=== PATIENT | male | born 1975 | race Caucasian/White ===

== ENCOUNTER 2016-12-30 14:47 | Emergency (ER) | payer BC ==
[2016-12-30 15:23] VITALS: BP 135/76; PULSE 65; RESP 20; TEMP 98
[2016-12-30] MEDS ORDERED: HYDROcodone/APAP 7.5-325MG 1 EACH TAB PO ONE (16:04)
[2016-12-30] MEDS ORDERED: KETOROLAC 60 MG/2 ML VIAL IM STA (16:04)
--- NOTE | 2016-12-30 16:52 | ED ---
Upper Extremity HPI - General Chief Complaint: Extremity Injury, Upper Stated Complaint: Finger Injury Time Seen by Provider: 12/30/16 15:55 Source: patient, RN notes reviewed Mode of arrival: ambulatory Limitations: no limitations - History of Present Illness Initial Comments: 41-year-old male presents to the ER after sustaining a crush injury to his left thumb. He was seen at [facility] yesterday and they diagnosed him with an open fracture of the left thumb. He states that they gave him oral Toradol and clindamycin and told and follow-up with orthopedics this week. He states that the Toradol is not controlling his pain and he is not able to sleep last night. Eyes any constitutional symptoms including nausea, vomiting, abdominal pain, headache, chest pain, shortness of breath, numbness or tingling of the extremities. He also states that he was given his tetanus shot yesterday at [facility]: home - Related Data Home Medications Medication Instructions Recorded Confirmed Lisinopril [Zestril] 10 mg PO DAILY 12/30/16 12/30/16 Omeprazole [PriLOSEC] 20 mg PO DAILY 12/30/16 12/30/16 Previous Rx's Medication Instructions Recorded HYDROcodone/APAP 5-325MG [[place] 5] 1 - 2 each PO Q4-6H PRN #30 tab 12/30/16 Allergies Allergy/AdvReac Type Severity Reaction Status Date / Time Penicillins Allergy Unknown Verified 12/30/16 15:23 Review of Systems ROS Statement: Those systems with pertinent positive or pertinent negative responses have been documented in the HPI. ROS Other: All systems not noted in ROS Statement are negative. Past Medical History Past Medical History: GERD/Reflux, Hypertension History of Any Multi-Drug Resistant Organisms: None Reported Additional Past Surgical History / Comment(s): tonsilectomy Past Psychological History: No Psychological Hx Reported Smoking Status: Never smoker Past Alcohol Use History: Occasional Past Drug Use History: None Reported General Exam Limitations: no limitations General appearance: alert, in distress (Secondary to pain) Head exam: Present: atraumatic, normocephalic Eye exam: Present: normal appearance, PERRL, EOMI Pupils: Present: normal accommodation Respiratory exam: Present: normal lung sounds bilaterally Cardiovascular Exam: Present: regular rate, normal rhythm Extremities exam: Present: normal capillary refill, other (Left thumb: Diffuse ecchymosis with laceration under nail with subungual hematoma. Mild to moderate edema. Neurovascular intact, range of motion intact) Neurological exam: Present: alert, oriented X3, CN II-XII intact Psychiatric exam: Present: normal affect, normal mood Course Vital Signs 12/30/16 15:18 Temperature 98.0 F Pulse Rate 65 Respiratory 20 Rate Blood Pressure 135/76 O2 Sat by Pulse 98 Oximetry Procedures - Incision & Drainage Consent Obtained: verbal consent Time Out Performed?: Yes Indication: Subungual hematoma Site: other (Left thumbnail) I&D Cleaning Method: Alcohol Wipe Sterile Field Used?: No Needle Aspiration Performed?: No (Puncture completed with cauterization) Irrigation Performed?: No I&D Drainage Obtained: Blood Culture Obtained?: No Patient Tolerated Procedure: well Medical Decision Making - Medical Decision Making 41-year-old male presents to the ER [facility] with an open fracture of the left phalanx of the thumb. The image was reviewed as they brought a CD with them. There was a subungual hematoma and this was drained to help relieve pressure and pain. The patient was also given a Toradol injection [place] in the ER to help with pain and given a prescription for [place] to have at home to help control the pain as well. Patient is instructed to follow-up with orthopedics this week. He was given a work note for the week if he is not allowed to have any bandage her glove on while working. The patient is to elevate the area and ice intermittently. To return to the ER with any worsening symptoms or concerns. All questions were answered and patient agreeable with treatment plan. - Radiology Data Radiology results: image reviewed (Patient brought disc and this did show a comminuted fracture of the left distal phalanx of the thumb.) Disposition Clinical Impression: Subungual hematoma of left thumb, Open fracture of phalanx of left thumb Disposition: HOME SELF-CARE Condition: Good Instructions: Subungual Hematoma (ED) Additional Instructions: To follow-up with orthopedics as soon as possible. To return to the ER if any worsening symptoms or concerns. Prescriptions: HYDROcodone/APAP 5-325MG [[place] 5] 1 - 2 each PO Q4-6H PRN #30 tab PRN Reason: Pain Referrals: Mari Phillips MD [Primary Care Provider] - 1-2 days Tabitha Chandra, PAC [PHYSICIAN TRANSFER CONTROLLER] - 1-2 days Time of Disposition: 16:52
== END 2016-12-30 17:03 | disposition home or self-care (01) ==
LOC: EC 14:47
DX: S62.522B Displaced fracture of distal phalanx of left thumb, initial encounter for open fracture (principal); S60.012A Contusion of left thumb without damage to nail, initial encounter; K21.9 Gastro-esophageal reflux disease without esophagitis; I10 Essential (primary) hypertension; Z79.899 Other long term (current) drug therapy; Z88.0 Allergy status to penicillin; W22.8XXA Striking against or struck by other objects, initial encounter; Y92.009 Unspecified place in unspecified non-institutional (private) residence as the place of occurrence of the external cause
CPT/HCPCS: 99283; 11740; 96372; J1885

== ENCOUNTER 2023-03-04 08:24 | Emergency (ER) | payer BC ==
[2023-03-04 08:30] VITALS: RESP 18; TEMP 98.6
[2023-03-04] MEDS ORDERED: MAG HYDROX/AL HYDROX/SIMETH 30 ML, HYOSCYAMINE ELIXIR 10 ML, LIDOCAINE 2% GLYDO JELLY 1... PO STA ×3 (08:45)
--- NOTE | 2023-03-04 08:56 | ED ---
General Adult HPI - General Chief complaint: ENT Stated complaint: throat irritation Time Seen by Provider: 03/04/23 08:34 Source: patient, RN notes reviewed, old records reviewed Mode of arrival: ambulatory Limitations: no limitations - History of Present Illness Initial comments: Patient is a 47-year-old male with past medical history remarkable for acid reflux, irritable bowel syndrome, hypertension presents emergency Department complaining of throat irritation. Patient states that one week ago he was eating chicken wings when he thinks he may have swallowed a piece of bone or cartilage. At some irritation then but it seemed to resolve. However over the last 1-2 days he has noticed somewhat more discomfort when swallowing. Is having no issues swallowing solids or liquids but became concerned and wanted to be evaluated. Denies any hematemesis. Denies any nausea or vomiting. Denies diarrhea. Has any other chest pain. Denies shortness of breath. Is able to tolerate both liquids and solids. Has no other acute complaints at this time. - Related Data Home Medications Medication Instructions Recorded Confirmed Omeprazole [PriLOSEC] 20 mg PO DAILY 12/30/16 12/30/16 lisinopriL [Zestril] 10 mg PO DAILY 12/30/16 12/30/16 Previous Rx's Medication Instructions Recorded HYDROcodone/APAP 5-325MG [[place] 5] 1 - 2 each PO Q4-6H PRN #30 tab 12/30/16 Ondansetron Odt [Zofran Odt] 4 mg PO Q8HR PRN 2 Days #6 tab 03/04/23 Allergies Allergy/AdvReac Type Severity Reaction Status Date / Time Penicillins Allergy Unknown Verified 12/30/16 15:23 Review of Systems ROS Statement: Those systems with pertinent positive or pertinent negative responses have been documented in the HPI. Review of Systems: CONST: Denies fever EYES: Denies blurry vision ENT: Denies nasal congestion C/V: Denies Chest pain RESP: Denies shortness of breath GI: Denies abdominal pain : Denies dysuria SKIN: Denies rash. MSK: Denies joint pain. NEURO: Denies headache ROS Other: All systems not noted in ROS Statement are negative. Past Medical History Past Medical History: GERD/Reflux, Hypertension History of Any Multi-Drug Resistant Organisms: None Reported Additional Past Surgical History / Comment(s): tonsilectomy Past Psychological History: No Psychological Hx Reported Smoking Status: Never smoker Past Alcohol Use History: Occasional Past Drug Use History: None Reported General Exam - General Exam Comments Initial Comments: General: Appears in no acute distress. HEAD: Normal with no signs of head trauma. EYES: PERRLA, EOMI, conjunctiva normal, no discharge. ENT: Hearing grossly intact, normal oropharynx. No stridor auscultated. RESPIRATORY: Clear breath sounds bilaterally. No wheezes, rales, or rhonchi. C/V: Regular rate and rhythm. S1 and S2 auscultated, peripheral pulses 2+ and intact throughout ABD: Abd is soft, nontender, nondistended EXT: Normal range of motion, no obvious deformity SKIN: No rashes or lesions observed on exposed skin. NEURO: Alert and oriented 4. Limitations: no limitations Course Vital Signs 03/04/23 03/04/23 08:28 10:18 Temperature 98.6 F Pulse Rate 58 L 57 L Respiratory 18 18 Rate Blood Pressure 156/84 135/90 O2 Sat by Pulse 100 96 Oximetry Medical Decision Making - Medical Decision Making Was pt. sent in by a medical professional or institution (, PA, SALES OFFICE MANAGER, urgent care, hospital, or care home...) When possible be specific @ -No Did you speak to anyone other than the patient for history (EMS, parent, family, police, friend...)? What history was obtained from this source @ -No Did you review nursing and triage notes (agree or disagree)? Why? @ -I reviewed and agree with nursing and triage notes Were old charts reviewed (outside hosp., previous admission, EMS record, old EKG, old radiological studies, urgent care reports/EKG's, care home records)? Report findings @ -No old charts were reviewed Differential Diagnosis (chest pain, altered mental status, abdominal pain women, abdominal pain men, vaginal bleeding, weakness, fever, dyspnea, syncope, headache, dizziness, GI bleed, back pain, seizure, CVA, palpatations, mental health, musculoskeletal)? @ -Esophageal foreign body, esophageal rupture, esophageal tear, acid reflux. This list is not all-inclusive. EKG interpreted by me (3pts min.). @ -None done X-rays interpreted by me (1pt min.). @ -Patient's imaging negative for any evidence of esophageal rupture or esophageal foreign body. Chest x-ray within acceptable limits. CT interpreted by me (1pt min.). @ -None done U/S interpreted by me (1pt. min.). @ -None done What testing was considered but not performed or refused? (CT, X-rays, U/S, labs)? Why? @ -None What meds were considered but not given or refused? Why? @ -None Did you discuss the management of the patient with other professionals (professionals i.e. , PA, SALES OFFICE MANAGER, lab, RT, psych nurse, marriage and family social worker, inner tube tuber machine operator, teacher, agricultural technical officer, special education case manager)? Give summary @ -No Was smoking cessation discussed for >3mins.? @ -No Was critical care preformed (if so, how long)? @ -No Were there social determinants of health that impacted care today? How? (Homelessness, low income, unemployed, alcoholism, drug addiction, transportation, low edu. Level, literacy, decrease access to med. care, penitentiary, rehab)? @ -No Was there de-escalation of care discussed even if they declined (Discuss DNR or withdrawal of care, Hospice)? DNR status @ -No What co-morbidities impacted this encounter? (DM, HTN, Smoking, COPD, CAD, Cancer, CVA, ARF, Chemo, Hep., AIDS, mental health diagnosis, sleep apnea, morbid obesity)? @ -None Was patient admitted / discharged? Hospital course, mention meds given and route, prescriptions, significant lab abnormalities, going to OR and other pertinent info. @ -Based on the patient's presentation and physical exam, I'm concerned for possible esophageal foreign body, however original feeling was one week ago and has been tolerating oral intake since. We did discuss he may have some esophageal irritation from possible laceration or abrasion from the food he ate last week, combined with his acid reflex. I did discuss with him we will provide him with a GI cocktail as well as obtain chest x-ray and soft tissue neck x-ray to evaluate for any obvious signs of perforation or foreign body. He believes it might of been a problem. He was in agreement with this plan. Vital signs within acceptable limits. He is resting comfortably in no acute distress. Imaging is unremarkable. Patient's still tolerating oral intake. I discussed results with him. I believe it is safer to be discharged home. He was in agreement this plan. Strict return precautions discussed. Discussed he may have an abrasion in his esophagus caused by what ever food he swallowed. No concern for large chicken bone at this time. He is tolerating oral liquids and solid diet. Recommended antacids at home as well as Mylanta. He was in agreement this plan. I instructed the patient to follow up with their PCP in the next 1-3 days. I provided contact information for follow up with GI. I explained that the patient should return to the emergency department if they experience any worsening symptoms. Strict return precautions were discussed with the patient. The patient expressed understanding of these instructions. I answered all questions that the patient had. The patient was discharged home in good condition with their prescriptions and follow up information. Undiagnosed new problem with uncertain prognosis? @ -No Drug Therapy requiring intensive monitoring for toxicity (Heparin, Nitro, Insulin, Cardizem)? @ -No Were any procedures done? @ -No Diagnosis/symptom? @ -Dysphasia, suspected esophageal abrasion Acute, or Chronic, or Acute on Chronic? @ -Acute Uncomplicated (without systemic symptoms) or Complicated (systemic symptoms)? @ -uncomplicated Side effects of treatment? @ -none Exacerbation, Progression, or Severe Exacerbation] @ -no Poses a threat to life or bodily function? @ -no Disposition Clinical Impression: Esophageal abrasion Disposition: HOME SELF-CARE Condition: Good Instructions (If sedation given, give patient instructions): GERD (Gastroesophageal Reflux Disease) (ED), Dysphagia (ED) Prescriptions: Ondansetron Odt [Zofran Odt] 4 mg PO Q8HR PRN 2 Days #6 tab PRN Reason: Nausea Is patient prescribed a controlled substance at d/c from ED?: No Referrals: Cande Ventura MD [Primary Care Provider] - 1-2 days Time of Disposition: 10:01
--- NOTE | 2023-03-04 09:43 | XR ---
EXAMINATION TYPE: XR chest 2V DATE OF EXAM: 03/04/2023 COMPARISON: NONE HISTORY: Chest pain TECHNIQUE: Frontal and lateral views of the chest are obtained. FINDINGS: There is no focal air space opacity. No evidence for pneumothorax. No pleural effusion. The cardiac silhouette size is within normal limits. The osseous structures are grossly intact. IMPRESSION: 1. No acute cardiopulmonary process. No radiopaque foreign body identified.
--- NOTE | 2023-03-04 09:43 | XR ---
EXAMINATION TYPE: XR soft tissue neck DATE OF EXAM: 03/04/2023 COMPARISON: NONE HISTORY: eval for esoph foreign body/mediastinal air TECHNIQUE: 2 views of the soft tissues of the neck are submitted. FINDINGS: The airway is patent. Normal appearing epiglottis. Retropharyngeal soft tissues are withi n normal limits. No evidence for radiopaque foreign body. IMPRESSION: Negative study
[2023-03-04 10:19] VITALS: BP 135/90; PULSE 57
== END 2023-03-04 10:19 | disposition home or self-care (01) ==
LOC: EC 08:24
DX: S27.818A Other injury of esophagus (thoracic part), initial encounter (principal); K21.9 Gastro-esophageal reflux disease without esophagitis; I10 Essential (primary) hypertension; Z88.0 Allergy status to penicillin; Z79.899 Other long term (current) drug therapy; W45.8XXA Other foreign body or object entering through skin, initial encounter
CPT/HCPCS: 70360; 71046; 99283

== ENCOUNTER 2024-11-19 19:54 | Emergency (ER) | payer BC ==
[2024-11-19 20:00] VITALS: TEMP 98.2
--- NOTE | 2024-11-19 20:14 | ED ---
Extremity Problem HPI - General Chief complaint: Extremity Problem,Nontraumatic Stated complaint: L Leg Edema Time Seen by Provider: 11/19/24 20:01 Source: patient Mode of arrival: ambulatory Limitations: no limitations - History of Present Illness Initial comments: 49-year-old male presenting with chief complaint of left leg pain. Patient reports that he regularly has a reddened patch of skin on his left knee that is quite dry and itchy. 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 He normally applies betamethasone and the itching subsides. Today the patient noticed that he had some red streaking going from the knee up his thigh. This is tender, worse with pressure or bearing weight. No fever. No cough congestion sore throat chest pain difficulty breathing nausea or vomiting. No history of DVT. No lower extremity swelling. - Related Data Home Medications Medication Instructions Recorded Confirmed Omeprazole [PriLOSEC] 20 mg PO DAILY 12/30/16 12/30/16 lisinopriL [Zestril] 10 mg PO DAILY 12/30/16 12/30/16 Previous Rx's Medication Instructions Recorded HYDROcodone/APAP 5-325MG [[place] 5] 1 - 2 each PO Q4-6H PRN #30 tab 12/30/16 Ondansetron Odt [Zofran Odt] 4 mg PO Q8HR PRN 2 Days #6 tab 03/04/23 Cephalexin [Keflex] 500 mg PO Q6HR 7 Days #28 cap 11/19/24 Sulfamethox-Tmp 800-160Mg [Bactrim 1 tab PO Q12HR 7 Days #14 tab 11/19/24 DS 800-160 mg] Allergies Allergy/AdvReac Type Severity Reaction Status Date / Time Penicillins Allergy Unknown Verified 11/19/24 20:00 Review of Systems ROS Statement: Those systems with pertinent positive or pertinent negative responses have been documented in the HPI. ROS Other: All systems not noted in ROS Statement are negative. Past Medical History Past Medical History: GERD/Reflux, Hypertension History of Any Multi-Drug Resistant Organisms: None Reported Additional Past Surgical History / Comment(s): tonsilectomy Past Psychological History: No Psychological Hx Reported Smoking Status: Never smoker Past Alcohol Use History: Occasional Past Drug Use History: None Reported General Exam Limitations: no limitations General appearance: alert, in no apparent distress Head exam: Present: atraumatic, normocephalic, normal inspection Eye exam: Present: normal appearance, EOMI Neck exam: Present: normal inspection. Absent: meningismus Respiratory exam: Absent: respiratory distress Cardiovascular Exam: Present: regular rate Extremities exam: Present: full ROM, normal capillary refill. Absent: pedal edema, joint swelling Neurological exam: Present: alert, oriented X3 Psychiatric exam: Present: normal affect, normal mood Skin exam: Present: warm, dry, other (There is some lymphangitis present near the left knee going up about a third of the way up the thigh) Course Vital Signs 11/19/24 19:57 Temperature 98.2 F Pulse Rate 91 Respiratory 17 Rate Blood Pressure 134/88 O2 Sat by Pulse 97 Oximetry Medical Decision Making - Medical Decision Making Was pt. sent in by a medical professional or institution (, PA, PRIMARY HEALTH CARE NURSE, urgent care, hospital, or skilled nursing...) When possible be specific @ -No Did you speak to anyone other than the patient for history (EMS, parent, family, police, friend...)? What history was obtained from this source @ -No Did you review nursing and triage notes (agree or disagree)? Why? @ -I reviewed and agree with nursing and triage notes Were old charts reviewed (outside hosp., previous admission, EMS record, old EKG, old radiological studies, urgent care reports/EKG's, skilled nursing records)? Report findings @ -No old charts were reviewed Differential Diagnosis (chest pain, altered mental status, abdominal pain women, abdominal pain men, vaginal bleeding, weakness, fever, dyspnea, syncope, headache, dizziness, GI bleed, back pain, seizure, CVA, palpatations, mental health, musculoskeletal)? @ -Differential Musculoskeletal Muscular strain, contusion, ligament sprain, fracture, arthritis, septic arthri tis, bursitis, cellulitis, muscle spasm, nerve compression, DVT, arterial occlusion, herpes zoster, electrolyte abnormality, tumor.... This is not meant to be in all inclusive list EKG interpreted by me (3pts min.). @ -As above X-rays interpreted by me (1pt min.). @ -None done CT interpreted by me (1pt min.). @ -None done U/S interpreted by me (1pt. min.). @ -Ultrasound shows no evidence of DVT What testing was considered but not performed or refused? (CT, X-rays, U/S, labs)? Why? @ -None What meds were considered but not given or refused? Why? @ -None Did you discuss the management of the patient with other professionals (professionals i.e. , PA, PRIMARY HEALTH CARE NURSE, lab, RT, psych nurse, social media senior associate, system support administrator, teacher, chairman president and chief executive officer, medical case worker)? Give summary @ -No Was smoking cessation discussed for >3mins.? @ -No Was critical care preformed (if so, how long)? @ -No Were there social determinants of health that impacted care today? How? (Homelessness, low income, unemployed, alcoholism, drug addiction, transportation, low edu. Level, literacy, decrease access to med. care, long-term, rehab)? @ -No Was there de-escalation of care discussed even if they declined (Discuss DNR or withdrawal of care, Hospice)? DNR status @ -No What co-morbidities impacted this encounter? (DM, HTN, Smoking, COPD, CAD, Cancer, CVA, ARF, Chemo, Hep., AIDS, mental health diagnosis, sleep apnea, morbid obesity)? @ -None Was patient admitted / discharged? Hospital course, mention meds given and route, prescriptions, significant lab abnormalities, going to OR and other pertinent info. @ -49-year-old male presenting with chief complaint of left knee pain. Patient is having some red streaking slightly up the thigh as well. History and physical examination are conducted. Patient has good range of motion of the knee. No joint swelling or erythema. There is a patch of redness over the knee which the patient states that he regularly has, this area is normally itchy and he regularly applies betamethasone. 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 Neurovascularly intact. No leukocytosis or anemia. CRP 1.9. Ultrasound negative for DVT. I think symptoms are likely attributed to bursitis. Patient is educated on today's findings and treatment plan. He will be started on Bactrim. Follow-up with PCP. Report back to ER with any new or worsening symptoms. Discussed return parameters and answered all questions. Patient conveyed verbal understanding and agreed to the plan. I discussed this case in detail with my attending Dr. Helmreich Undiagnosed new problem with uncertain prognosis? @ -No Drug Therapy requiring intensive monitoring for toxicity (Heparin, Nitro, Insulin, Cardizem)? @ -No Were any procedures done? @ -No Diagnosis/symptom? @ -Bursitis Acute, or Chronic, or Acute on Chronic? @ -Acute Uncomplicated (without systemic symptoms) or Complicated (systemic symptoms)? @ -Uncomplicated Side effects of treatment? @ -No Exacerbation, Progression, or Severe Exacerbation? @ -No Poses a threat to life or bodily function? How? (Chest pain, USA, CT, pneumonia, PE, COPD, DKA, ARF, appy, cholecystitis, CVA, Diverticulitis, Homicidal, Suicidal, threat to staff... and all critical care pts) @ -Low likelihood - Lab Data Result diagrams: 11/19/24 20:19 11/19/24 20:19 Lab Results 11/19/24 11/19/24 11/19/24 Range/Units 20:19 20:19 20:19 WBC 6.9 (3.8-10.6) k/uL RBC 5.40 (4.30-5.90) m/uL Hgb 15.9 (13.0-17.5) gm/dL Hct 46.2 (39.0-53.0) % MCV 85.6 (80.0-100.0) fL MCH 29.5 (25.0-35.0) pg MCHC 34.5 (31.0-37.0) g/dL RDW 12.5 (11.5-15.5) % Plt Count 180 (150-450) k/uL MPV 8.2 Neutrophils % 75 % Lymphocytes % 13 % Monocytes % 8 % Eosinophils % 2 % Basophils % 0 % Neutrophils # 5.2 (1.3-7.7) k/uL Lymphocytes # 0.9 L (1.0-4.8) k/uL Monocytes # 0.6 (0-1.0) k/uL Eosinophils # 0.1 (0-0.7) k/uL Basophils # 0.0 (0-0.2) k/uL Sodium 139 (137-145) mmol/L Potassium 4.0 (3.5-5.1) mmol/L Chloride 104 (98-107) mmol/L Carbon Dioxide 24 (22-30) mmol/L Anion Gap 11 mmol/L BUN 18 (9-20) mg/dL Creatinine 0.93 (0.66-1.25) mg/dL Est GFR (CKD-EPI)AfAm >90 (>60 ml/min/1.73 sqM) Est GFR (CKD-EPI)NonAf >90 (>60 ml/min/1.73 sqM) Glucose 85 (74-99) mg/dL Plasma Lactic Acid Van 0.7 (0.7-2.0) mmol/L Calcium 9.1 (8.4-10.2) mg/dL Total Bilirubin 1.1 (0.2-1.3) mg/dL AST 25 (17-59) U/L ALT 32 (4-49) U/L Alkaline Phosphatase 68 (38-126) U/L C-Reactive Protein 1.9 H (<1.0) mg/dL Total Protein 7.0 (6.3-8.2) g/dL Albumin 4.4 (3.5-5.0) g/dL Disposition Clinical Impression: Bursitis Disposition: HOME SELF-CARE Condition: Good Instructions (If sedation given, give patient instructions): Knee Bursitis (ED) Additional Instructions: Follow-up with PCP. Report back to ER with any new or worsening symptoms. Prescriptions: Sulfamethox-Tmp 800-160Mg [Bactrim DS 800-160 mg] 1 tab PO Q12HR 7 Days #14 tab Cephalexin [Keflex] 500 mg PO Q6HR 7 Days #28 cap Is patient prescribed a controlled substance at d/c from ED?: No Referrals: Cande Ventura MD [Primary Care Provider] - 1-2 days Time of Disposition: 22:27
[2024-11-19] MEDS: KETOROLAC 15 MG/ML 1 ML VIAL IVP STA (20:26)
[2024-11-19 20:44] LABS: Basophils % (A) 0 %; Eosinophils # (A) 0.1 k/uL (0-0.7); Eosinophils % (A) 2 %; HCT 46.2 % (39.0-53.0); HGB 15.9 gm/dL (13.0-17.5); Lymphocytes # (A) 0.9 k/uL (1.0-4.8); Lymphocytes % (A) 13 %; MCH 29.5 pg (25.0-35.0); MCHC 34.5 g/dL (31.0-37.0); MCV 85.6 fL (80.0-100.0); Mean Platelet Volume 8.2; Monocytes # (A) 0.6 k/uL (0-1.0); Monocytes % (A) 8 %; Neutrophils # (A) 5.2 k/uL (1.3-7.7); Neutrophils % (A) 75 %; Platelet Count 180 k/uL (150-450); RDW 12.5 % (11.5-15.5); WBC 6.9 k/uL (3.8-10.6)
[2024-11-19 20:52] LABS: ALT 32 U/L (4-49); AST 25 U/L (17-59); African American GFR (CKD) >90 (>60 ml/min/1.73 sqM); Albumin 4.4 g/dL (3.5-5.0); Alkaline Phosphatase 68 U/L (38-126); Anion Gap 11 mmol/L; Blood Urea Nitrogen 18 mg/dL (9-20); Calcium 9.1 mg/dL (8.4-10.2); Carbon Dioxide 24 mmol/L (22-30); Chloride 104 mmol/L (98-107); Glucose 85 mg/dL (74-99); Non-African American GFR(CKD) >90 (>60 ml/min/1.73 sqM); Sodium 139 mmol/L (137-145); Total Bilirubin 1.1 mg/dL (0.2-1.3)
[2024-11-19 21:22] LABS: C Reactive Protein 1.9 mg/dL (<1.0)
--- NOTE | 2024-11-19 21:55 | US ---
EXAMINATION TYPE: US venous doppler duplex LE LT DATE OF EXAM: 11/19/2024 9:43 PM COMPARISON: NONE CLINICAL INDICATION: Male, 49 years old with history of pain, streaking up leg; TECHNIQUE: The lower extremity deep venous system is examined utilizing real time linear array sonog paramjit with graded compression, color doppler sonography, and spectral doppler. SIDE PERFORMED: Left FINDINGS: VESSELS IMAGED: Common Femoral Vein Deep Femoral Vein Greater Saphenous Vein * Femoral Vein Popliteal Vein Small Saphenous Vein * Proximal Calf Veins (* superficial vessels) Left Leg: Appears negative for DVT IMPRESSION: No evidence of deep vein thrombosis of the left lower extremity. [facility], , 11/19/2024 9:53 PM
[2024-11-19 22:30] VITALS: BP 133/76; PULSE 75; RESP 18
[2024-11-19] MEDS: SULFAMETHOX-TMP 800-160MG 1 EACH TAB PO STA (22:33)
[2024-11-20 02:20] LABS: Erythrocyte Sedimentation Rate 13 mm/Hr (0-20)
== END 2024-11-19 22:39 | disposition home or self-care (01) ==
LOC: EC 19:54
DX: M70.52 Other bursitis of knee, left knee (principal); Z88.0 Allergy status to penicillin
CPT/HCPCS: 99284 ×2; 96374 ×2; 36415; 80053; 85652; 83605; 85025; 86140; 93971; J1885